=== PATIENT | male | born 1985 | race Caucasian/White ===

== ENCOUNTER → 2016-08-19 | Day surgery (SDC) | payer OTHER ==
[~2016-08-19] MED LIST: DEXT5TAB27 PO; FENTANYL PF 100 MCG/2 ML VIAL. IV PRN; HYDROMORPHONE 2 MG/ML VIAL. IV PRN; IV RINGERS,LACTATED 1000ML 1,000 ML IV SCH; LIDOCAINE 1% 1 ML SYRINGE. ID PRN; LIDOCAINE 2% PF Vial for OR 5 ML VIAL. ONE; MORPHINE SULFATE 2 MG/ML DISP.SYRIN. IV PRN; OMEP20CA9 PO; ONDANSETRON PF 4 MG/2 ML VIAL. IV PRN; PROCHLORPERAZINE 10 MG/2 ML VIAL. IV PRN; PROPOFOL 40 ML IV ONE
[2016-08-19 10:13] VITALS: BP 126/65
--- NOTE | 2016-08-20 14:30 | PATHOLOGY ---
PATHOLOGY REPORT * * * * * * * * FINAL DIAGNOSIS: A. Esophageal biopsy, distal esophagus: - Segments of esophagogastric and gastric mucosa showing chronic inflammation. B. Esophageal biopsy, middle esophagus: - Esophagitis with eosinophils. See comment. COMMENT: Sections of the distal esophageal biopsy reveal segments of esophagogastric and gastric mucosa showing mild to moderate chronic inflammation. There is no evidence of Ayala's change, dysplasia, or malignancy. Sections of the middle esophageal biopsy reveal multiple segments of hyperplastic squamous esophageal mucosa. There are increased intraepithelial eosinophils. The differential diagnosis of esophagitis with eosinophils includes reflux esophagitis, "pill esophagitis," and eosinophilic esophagitis. There are focally up to 20-30 intraepithelial eosinophils per high power field, consistent with eosinophilic esophagitis. Correlate clinically. (JPM:; d/t: 08/20/16) REPORT ELECTRONICALLY SIGNED BY: Padilla Pino M.D. DATE/TIME: 08/20/2016 14:29 * * * * * * * * GROSS PATHOLOGY: A. Received in formalin labeled "Porsha Mccain and distal esophagus," are 3 segments of verma soft tissue measuring 1.0 x 0.2 x 0.2 cm in aggregate dimensions and ranging from 0.3 to 0.4 cm in maximum dimension. The specimen is submitted entirely in cassette A1. B. The specimen is received in formalin, labeled "Porsha Mccain and mid esophagus." Received is a 0.5 x 0.4 x 0.2 cm aggregate of white-verma, rubbery, and irregular soft tissue fragments. The specimen is entirely submitted in cassette B1. (TTL; 08/19/2016) INITIAL CPT CODE(S): A; 81651 B; 88897 Professional services performed by [employer] at [address] [address] Technical services performed by [employer] at [address] [place] [address], [facility] [address] [address]. SPECIMEN(S) RECEIVED: A.Distal esophagus B.Mid esophagus CLINICAL HISTORY: Esophagitis PATIENT: PORSHA MCCAIN /AGE: 612/15/1985 (Age: 30) PATIENT #: [id number] ALT CASE #: SPECIMEN COLLECTION DATE: 08/19/2016 SPECIMEN RECEIVED DATE: 08/19/2016 [facility] - [id number] [address] - PHONE: [phone] * * * END OF REPORT * * *
== END | disposition home or self-care (01) ==
LOC: ENDOS 07:59
PROVIDERS: ATTEND Internal Medicine Gastroenterology
DX: K21.0 Gastro-esophageal reflux disease with esophagitis (principal); K20.0 Eosinophilic esophagitis; J45.909 Unspecified asthma, uncomplicated; F41.9 Anxiety disorder, unspecified; F32.9 Major depressive disorder, single episode, unspecified
CPT/HCPCS: 43239; 43450; 88305; J2704